=== PATIENT | male | born 1980 | race Caucasian/White ===

== ENCOUNTER 2018-07-16 18:20 | Emergency (ER) | payer OTHER ==
[2018-07-16] MEDS ORDERED: Lidocaine 1% (PF) 30 ML VIAL ONE (18:52)
--- NOTE | 2018-07-16 19:18 | RAD ---
LEFT INDEX FINGER THREE VIEWS: History: Caught in machine at work. FINDINGS: Soft tissue injury and transversely oriented fracture through the distal aspect of the middle phalanx is present. IMPRESSION: Middle phalanx fracture. Fracture is only minimally displaced. POS: [facility]
[2018-07-16] MEDS ORDERED: Morphine 4 MG/ML VIAL ONE ×2 (19:30→20:34)
[2018-07-16] MEDS ORDERED: Adacel (T-DAP) 0.5 ML SYRINGE ONE (19:30)
== END 2018-07-16 20:55 | disposition short-term general hospital (02) ==
LOC: ERS 18:20
DX: S62.621B Displaced fracture of middle phalanx of left index finger, initial encounter for open fracture (principal); F41.9 Anxiety disorder, unspecified; F31.9 Bipolar disorder, unspecified; W31.9XXA Contact with unspecified machinery, initial encounter
CPT/HCPCS: 90471; 90715; 96374; 96376; J2001; J2270

== ENCOUNTER 2018-07-24 11:04 | Day surgery (SDC) | payer OTHER ==
[2018-07-23 17:29] VITALS: BMI 33.9
[2018-07-24] MEDS ORDERED: Lidocaine 1% (PF) 30 ML VIAL ONE (14:13)
[2018-07-24] MEDS ORDERED: Bupivacaine PF 0.5% 30 ML VIAL ONE (14:15)
[2018-07-24] MEDS ORDERED: Fentanyl 100 MCG/2 ML VIAL ONE ×2 (14:19→15:34)
[2018-07-24] MEDS ORDERED: Ketorolac Tromethamine 30 MG/ML VIAL ONE (15:34)
[2018-07-24] MEDS ORDERED: PROPOFOL 200 MG/20 ML VIAL ONE (15:39)
[2018-07-24] MEDS ORDERED: Lidocaine 1% PF 5 ML VIAL ONE (15:39)
[2018-07-24] MEDS ORDERED: ePHEDrine 50 MG/ML VIAL ONE (15:39)
[2018-07-24] MEDS ORDERED: Ondansetron PF 4 MG/2 ML Vial ONE (15:39)
--- NOTE | 2018-07-25 12:49 | OP ---
DATE OF PROCEDURE: 07/24/2018 PREOPERATIVE DIAGNOSIS: Traumatic fingertip amputation of his left index finger at the level of the middle phalangeal neck. POSTOPERATIVE DIAGNOSIS: Traumatic fingertip amputation of his left index finger at the level of the middle phalangeal neck. PROCEDURES PERFORMED: Revision of traumatic amputation of left index finger at the level of the middle phalanx with radial and ulnar digital neurectomies and washout of wound and debridement of soft tissue. HEALTH SUPPORT SPECIALIST: saundra Bradshaw. ANESTHESIA: General and local. TOURNIQUET TIME: 14 minutes. ESTIMATED BLOOD LOSS: Less than 10 mL. FINDINGS: Necrotic tip of index finger involving the distal phalanx and distal portion of the middle phalanx with bone and soft tissue and tendon involvement. I was able to debride that to get bleeding bone down to the level of the middle phalanx of the left index finger. SPECIMEN: Left index finger tip distal phalanx. CONDITION: Stable. 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 He was seen at [facility] and then transported to [facility] for further treatment and care. He was discharged from [place], [place]. Aside from getting a tetanus and having tip of his finger sewn back on, there were no other forms of treatment as far as my knowledge and as upon further discussion with the patient and his . They were seen by me in the clinic on Friday as per request of company nurse, Ethan, of that week and I informed the patient that there is high possibility that the finger tip will most likely not survive his injury and that he will need an amputation. Given that it is a work related injury, authorization was required from the Worker's Compensation claim. Once we got the authorization, we are able to schedule a surgery for this Friday afternoon. I was able to examine him and revisit all risks and goals associated with today's procedure. The patient and his voiced understanding and agreed to proceed with the revision amputation of the left index finger tip. DESCRIPTION OF PROCEDURE: He was pre-dosed with preoperative antibiotics and I brought to the operating room, placed supine on the operating room table. Time out was performed. Left upper extremity tourniquet was applied. General anesthesia was induced by the Anesthesia team as per the patient's wishes and the dressing overlying the left index finger was removed and then I had the nursing staff prepped and draped the left upper extremity under sterile aseptic condition. A second time out was performed. The left upper extremity was exsanguinated using gravity and then, the tourniquet was inflated to 250 mmHg. I injected a digital block to the left index finger using 0.5% bupivacaine and 1% lidocaine plain. This was administered as a ring block to the left index finger. I removed all sutures and discarded them away from the field, sharp dissection was continued all the way around the circumferential wound at the left index finger at the level of necrosis with the necrotic skin at the viable pink skin. Given the fracture, we went right through the neck of the middle phalanx via fingertip, then came off rather easily are send it for pathologic specimen. I debrided down to good bleeding bone. Once the tourniquet was deflated, I did ulnar and radial digital neurectomies. I did an STP tenotomy and washout the wound very fairly with sterile saline solution and I was able primarily get the skin edges back together and I trimmed any dog-ears of the size of the wound as well. The skin incision was primarily repaired using 4 -0 nylon suture and care was taken not to overtighten the incision. The flap displayed good pink refill. I had good back bleeding as I stuck a 25 gauge needle into the skin flap volarly and I appreciate good back bleeding once the skin closure was performed. Xeroform and a bulky dressing were applied over the finger. The patient was extubated and then I transported back to the recovery area in stable condition. Using electronic lab technician, we continue with his oral antibiotics as previously prescribed for a minimum of 1 week post injury and then he was given pain medication refill. I will plan on seeing him back in my office next week for followup with a wound care and wound check and he will participate now formal hand therapy to maintain range of motion of the left index finger proximal interphalangeal and medical for phalangeal joints. Job ID: [id number] [facility]
== END 2018-07-24 16:30 | disposition home or self-care (01) ==
LOC: SDC 11:04
PROVIDERS: ATTEND Surgery Surgery of the Hand
PROC: 0X6P0Z2 Detachment at Left Index Finger, Mid, Open Approach (ICD-10-PCS; principal; 2018-07-24)
DX: S68.61 Complete traumatic transphalangeal amputation of other and unspecified finger(s) (principal); F41.9 Anxiety disorder, unspecified; F32.9 Major depressive disorder, single episode, unspecified; Z79.2 Long term (current) use of antibiotics; W31.9XXD Contact with unspecified machinery, subsequent encounter; Y99.0 Civilian activity done for income or pay
CPT/HCPCS: 88305; J1885; J2001; J2405; J2704; J3010; J3490; S0020